=== PATIENT | female | born 2000 | race Caucasian/White ===

== ENCOUNTER 2020-04-17 20:38 | Emergency (ER) | payer OTHER, SELFPAY ==
[2020-04-17 20:40] VITALS: BP 95/61; PULSE 125; RESP 16; TEMP 35.7; O2SAT 98; BMI 33.7
[2020-04-17 21:41] VITALS: BP 116/67; PULSE 112; RESP 18; O2SAT 96
--- NOTE | 2020-04-17 22:00 | ED.DCSUM_ITS ---
History of Present Illness Chief Complaint: Allergic Reaction Informant: Patient Onset: Days Maximum Severity: Mild Narrative: Patient's had a diffuse hive type rash for about 5 days she indicates about 10 days ago she started Wellbutrin for depression that was a new medicine for her than 5 days later she developed a diffuse hive type rash over her whole body she spoke with her physicians the Wellbutrin was tapered to off over the weekend. She was taking Benadryl the rash basically went away it was markedly better until this evening when she indicates she was basically trying to get to the dining alatorre she believes she perspired and the perspiration caused her to have recurrence of the hives. She is on Zoloft which is a chronic medication for her not new she has no other exposures, she has no new meds no allergies no detergents no new close nothing else other than the Wellbutrin is new. 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[employer], she has had no coronavirus exposures, slight runny nose, no fever no cough no shortness of breath no other complaints except that her skin is quite itchy Past Medical History - Allergies and Home Meds Allergies/Adverse Reactions: Allergies bupropion [From Wellbutrin] Allergy (Verified 04/17/20 20:40) Hives carrot Allergy (Verified 04/17/20 20:40) Itching Primary Care Physician: SHELLY SINGH [Other] Past Medical History: - Smoking Status: Never smoker Review of Systems ROS: - Includes as above General: Denies: Chills, Fever, Sweats Eyes: Denies: Visual changes - bilaterally, Diplopia ENT: Denies: Rhinorrhea, Sore throat Cardiovascular: Denies: Chest pain, Palpitations Respiratory: Denies: Dyspnea, Cough, Dyspnea on exertion Gastrointestinal: Denies: Abdominal pain, Nausea, Vomiting, Diarrhea, Melena, Hematochezia Genitourinary: Denies: Dysuria, Hematuria, Frequency Musculoskeletal: Denies: Back pain, Extremity Pain Skin: Reports: Rash. Denies: Wounds Neurological: Denies: Headache, Weakness, Numbness Physical Exam Vital Signs/Narrative: Vital Signs Temp Pulse Resp BP Pulse Ox 04/17/20 21:41 112 H 18 116/67 96 04/17/20 20:40 96.3 F L 125 H 16 95/61 98 General: Well nourished, Well developed, No Acute Distress Head: Normocephalic, Atraumatic Eyes: Perrl, EOMI ENT: Moist mucous membranes, No rhinorrhea Neck: Supple, Nontender Cardiovascular: Regular rate, Regular rhythm, No murmurs Respiratory: No distress, CTA bilaterally, Chest nontender Abdomen: Soft, Nontender, Nondistended, Normal bowel sounds Back: Nontender, Normal Inspection Extremities: Nontender, No edema Skin: Normal color, - - The patient is resting the bed no distress her HEENT airway exams unremarkable neck is supple, her skin exam she has diffuse hives primarily over her trunk and her extremities, there is no petechia or purpura skin breakdown no other rashes no blistering Neurological: Alert, Oriented x3, Cranial nerves II-XII grossly intact, Normal Strength, Normal Sensation Psychological: Normal affect, Normal Mood Diagnostic/Tx/Re-eval - Medical Decision Making A long conversation with her reviewed the history she was fine with almost resolution of the rash until she basically walked briskly to the dining alatorre she believes that caused her to perspire and triggered recurrence of the hives clinically she looks well there is no airway compromise no signs of 6 systemic disease or toxicity No drill seem to help, at this time she will be asked to continue use the Benadryl Aveeno bath or Aveeno lotion, Kenalog IM she will stop and not use the Wellbutrin she has been in contact with her providers to have adjustments to her antidepressant medications and she will return for change in symptoms and see her outpatient providers for the above follow-up Home stable Impression diffuse hive type rash suspect related to drug allergy based on history ED Disposition - Plan for ED Patient: Diagnosis: Hive type rash Instructions: ED General Allergic Reactions, ED ADVERSE DRUG REACTION Allergic Referrals: SHELLY SINGH [Other]
[2020-04-17] MEDS: Triamcinolone Acetonide 40 MG/ML Vial IM (22:09)
[2020-04-17 22:27] VITALS: BP 112/71; PULSE 110; RESP 14; O2SAT 100
== END 2020-04-17 22:30 | disposition home or self-care (01) ==
PROVIDERS: Emergency Provider Emergency Medicine
DX: L50.0 Allergic urticaria (principal); F32.9 Major depressive disorder, single episode, unspecified; Z79.899 Other long term (current) drug therapy
CPT/HCPCS: 96372; 99282

== ENCOUNTER → 2021-05-27 07:36 | Outpatient (CLI) | payer OTHER, SELFPAY | PROVIDERS: Visit Provider Family Medicine | DX: Z23 Encounter for immunization (principal) ==